=== PATIENT | female | born 1990 | race Caucasian/White ===

== ENCOUNTER 2016-11-19 08:37 | Day surgery (SDC) | payer BC ==
[~2016-11-19 08:37] MED LIST: PROPOFOL INJ 200 MG/20 ML VIAL IV ONE
[2016-11-19 11:10] VITALS: BP 110/64
--- NOTE | 2016-11-19 14:06 | Operative Report ---
Operative Report DATE OF SURGERY: 11/19/16 Operative Report: The risks, benefits and alternatives of the procedure including risks of bleeding, perforation requiring surgery are explained to the patient in detail and informed consent is obtained. The patient is taken back to the endoscopy suite. Timeout is called. Propofol medications administered. A rectal examination was done which did not reveal any masses, tears or fissures. An Olympus videoscope was inserted into the patient's rectum and keeping the lumen in site at all times the scope was then gradually advanced all the way to the cecum the cecum was identified by the usual anatomical landmarks of the ileocecal valve as well as the appendiceal office. Photodocumentation is obtained, prep is good. Scope was then sequentially pulled back out via the various segments of the colon including the ascending colon, hepatic flexure, transverse colon, splenic flexure, descending colon and finally into the rectosigmoid portions of the colon. Retroflexion maneuvers performed. PREOPERATIVE DIAGNOSIS: Rectal bleeding. Change in bowel habits. Abdominal pain POSTOPERATIVE DIAGNOSIS: Mild right-sided colitis status post biopsy. Internal hemorrhoids likely explaining the patient's rectal bleeding OPERATION: Colonoscopy with biopsy SURGEON: FILEMON AJ ANESTHESIA: LMAC TISSUE REMOVED OR ALTERED: Right-sided colon specimens obtained COMPLICATIONS: None. ESTIMATED BLOOD LOSS: none. INTRAOPERATIVE FINDINGS: No masses, AVMs, diverticulosis noted PROCEDURE: Patient tolerated the procedure well. No immediate postprocedure complications are noted. Patient is discharged in good condition. Discharge date 11/19/2016. Discharge diet: Regular. Discharge activity: Regular. Patient does have a 2-3 week follow-up to discuss findings We'll await on biopsies Patient is instructed to call the office or proceed to the emergency room should there be any further problems or questions
== END 2016-11-19 11:10 | disposition home or self-care (01) ==
LOC: END 08:37
PROVIDERS: ATTEND Internal Medicine Gastroenterology
PROC: 0DBF8ZX Excision of Right Large Intestine, Via Natural or Artificial Opening Endoscopic, Diagnostic (ICD-10-PCS; principal; 2016-11-19 10:00)
DX: K62.5 Hemorrhage of anus and rectum (principal); K52.9 Noninfective gastroenteritis and colitis, unspecified; K64.8 Other hemorrhoids; Z79.899 Other long term (current) drug therapy; Z88.2 Allergy status to sulfonamides
CPT/HCPCS: 45380; 88305 ×2; J2704; 810